=== PATIENT | male | born 1985 | race Caucasian/White ===

== ENCOUNTER 2021-11-16 10:19 | Day surgery (SDC) | payer OTHER ==
[~2021-11-16] VITALS: Ht 185.4 cm; Wt 114.1 kg
[2021-11-16 11:36] VITALS: BP 136/86; PULSE 67; TEMP 97.2
[2021-11-16 12:00] VITALS: BP 124/90; PULSE 78; TEMP 97.4
[2021-11-16 12:15] VITALS: BP 128/95; PULSE 63
[2021-11-16 12:30] VITALS: BP 122/90; PULSE 71
== END 2021-11-16 12:50 | disposition home or self-care (01) ==
LOC: SDCO 10:19
DX: K21.00 Gastro-esophageal reflux disease with esophagitis, without bleeding (principal); F45.8 Other somatoform disorders; F17.290 Nicotine dependence, other tobacco product, uncomplicated
CPT/HCPCS: J2704